=== PATIENT | female | born 1955 | race Caucasian/White ===

== ENCOUNTER → 2016-07-05 | Day surgery (SDC) | payer OTHER | END | disposition home or self-care (01) | LOC: SDCH 06:08 | DX: K63.5 Polyp of colon (principal); K56.2 Volvulus; K57.30 Diverticulosis of large intestine without perforation or abscess without bleeding; I10 Essential (primary) hypertension; J44.9 Chronic obstructive pulmonary disease, unspecified; K21.9 Gastro-esophageal reflux disease without esophagitis; G47.33 Obstructive sleep apnea (adult) (pediatric); M19.90 Unspecified osteoarthritis, unspecified site; F17.210 Nicotine dependence, cigarettes, uncomplicated; Z99.81 Dependence on supplemental oxygen; Z87.442 Personal history of urinary calculi; Z88.1 Allergy status to other antibiotic agents; Z91.040 Latex allergy status; Z79.899 Other long term (current) drug therapy; Z90.49 Acquired absence of other specified parts of digestive tract; Z90.710 Acquired absence of both cervix and uterus; Z98.890 Other specified postprocedural states ==